=== PATIENT | female | born 1980 | race Caucasian/White ===

== ENCOUNTER 2022-06-07 08:55 | Emergency (ER) | payer BC, OTHER ==
[2022-06-07] MEDS ORDERED: Ketorolac 60 MG/2 ML SDV IM ONE (10:17)
[2022-06-07] MEDS ORDERED: Codeine/Promethazine 10-6.25 MG/5 ML Syrup 5 ML UD Cup PO ONE (10:18)
[2022-06-07 10:57] LABS: CORONAVIRUS COVID-19 NAA NEGATIVE (NEGATIVE)
[2022-06-07 12:03] VITALS: BP 116/73; PULSE 85
== END 2022-06-07 12:00 | disposition home or self-care (01) ==
LOC: JD.ED 08:55
DX: J98.9 Respiratory disorder, unspecified (principal); F17.210 Nicotine dependence, cigarettes, uncomplicated; Z20.822 Contact with and (suspected) exposure to COVID-19
CPT/HCPCS: 0241U; 71045; 96372; 99284; A9270; J1885